=== PATIENT | male | born 1970 | race Two or more races ===

== ENCOUNTER 2023-05-31 18:19 | Inpatient (IN) | payer OTHER ==
[2023-05-31 18:55] VITALS: BMI 26.4
[2023-05-31] MEDS ORDERED: ACETAMINOPHEN 325 MG TABLET (FP) PO ONE (21:01)
[2023-06-01] MEDS ORDERED: COLLOIDAL OATMEAL 1 BAR EACH TP PRN (00:02)
[2023-06-01] MEDS ORDERED: MAG HYDROX/AL HYDROX/SIMETH 30 ML UNIT-DOSE CUP PO PRN (00:02)
[2023-06-01] MEDS ORDERED: BENZOCAINE/MENTHOL (CHLORASEPTIC ) LOZENGE MM PRN (00:02)
[2023-06-01] MEDS ORDERED: guaiFENesin 600 MG TABLET.ER (FP) PO PRN (00:02)
[2023-06-01] MEDS ORDERED: BENZONATATE 200 MG CAPSULE PO PRN (00:02)
[2023-06-01] MEDS ORDERED: MAGNESIUM HYDROX 2400MG/30ML ORAL SUSPENSION 30 ML CUP PO PRN (00:02)
[2023-06-01] MEDS ORDERED: ACETAMINOPHEN 325 MG TABLET (FP) PO PRN (00:02)
[2023-06-01] MEDS ORDERED: P-EPHED 60MG/TRIPROLIDI 2.5MG TABLET PO PRN (00:02)
[2023-06-01] MEDS ORDERED: POLYETHYLENE GLYCOL (HEALTHYLAX) 3350 17 GM PACKET PO PRN (00:02)
[2023-06-01] MEDS ORDERED: LOPERAMIDE HCL 2 MG CAPSULE PO PRN (00:02)
[2023-06-01] MEDS: KETOCONAZOLE 2% CREAM - 60GM TUBE TP SCH ×2 (01:34→10:08)
[2023-06-01] MEDS: PRENATAL VITAMINS W/ FOLIC ACID TABLET (FP) PO SCH (10:04)
[2023-06-01] MEDS: NIFEdipine E.R 60 MG TABLET PO SCH (10:06)
[2023-06-01] MEDS: HYDROCHLOROTHIAZIDE 25 MG TABLET (FP) PO SCH (10:06)
[2023-06-01] MEDS: BACITRACIN ZINC 15 GM TUBE TOPICAL OINTMENT TP SCH (10:07)
[2023-06-01 11:35] LABS: PH,URINE 6.5 (5.0-8.0); URINE APPEARANCE CLEAR; URINE BILIRUBIN NEGATIVE (NEGATIVE); URINE COLOR YELLOW; URINE GLUCOSE (UA) NEGATIVE (NEGATIVE); URINE KETONE NEGATIVE (NEGATIVE); URINE LEUK ESTERASE NEGATIVE (NEGATIVE); URINE NITRITE NEGATIVE (NEGATIVE); URINE PROTEIN NEGATIVE (NEGATIVE); URINE UROBILINOGEN 0.2 mg/dL (0.2-1.0)
[2023-06-01] MEDS: hydrOXYzine PAMOATE 50 MG CAPSULE (FP) PO PRN (12:21)
[2023-06-01] MEDS: THIAMINE HCL 100 MG TABLET (FP) PO SCH (21:04)
[2023-06-01] MEDS: cloNIDine HCL 0.1 MG TABLET PO SCH (21:04)
[2023-06-01] MEDS: MELATONIN 5 MG TABLETS PO SCH (21:04)
[2023-06-01] MEDS: traZODone HCL 50 MG TABLET (FP) PO SCH (21:05)
[2023-06-02] MEDS: IBUPROFEN 400 MG TABLET (FP) PO PRN (06:21)
[2023-06-02] MEDS: hydrOXYzine PAMOATE 50 MG CAPSULE (FP) PO PRN ×3 (06:23→21:14)
[2023-06-02] MEDS: NIFEdipine E.R 60 MG TABLET PO SCH (10:07)
[2023-06-02] MEDS: cloNIDine HCL 0.1 MG TABLET PO SCH ×2 (10:07→21:13)
[2023-06-02] MEDS: PRENATAL VITAMINS W/ FOLIC ACID TABLET (FP) PO SCH (10:07)
[2023-06-02] MEDS: HYDROCHLOROTHIAZIDE 25 MG TABLET (FP) PO SCH (10:07)
[2023-06-02] MEDS: BACITRACIN ZINC 15 GM TUBE TOPICAL OINTMENT TP SCH (10:09)
[2023-06-02] MEDS: KETOCONAZOLE 2% CREAM - 60GM TUBE TP SCH (10:27)
[2023-06-02] MEDS ORDERED: BACITRACIN 0.9 GM PACKET TP SCH (10:30)
[2023-06-02 10:58] LABS: HEMATOCRIT 36.4 % (35.4-49); HEMOGLOBIN 11.8 GM/dL (11.7-16.9); MCH 26.6 pg (25.7-33.7); MCHC 32.3 g/dl (32.0-35.9); MEAN CELL VOLUME 82.2 fl (80-96); PLATELET COUNT 307 10^3/uL (134-434); RBC 4.43 M/mm3 (4.00-5.60); RDW 15.9 % (11.9-15.9)
[2023-06-02 11:05] LABS: POTASSIUM 3.9 mmol/L (3.5-5.1)
[2023-06-02 11:25] LABS: CALCIUM 8.7 mg/dL (8.5-10.1)
[2023-06-02 11:26] LABS: ALBUMIN 3.1 g/dl (3.4-5.0); BLOOD UREA NITROGEN 16.7 mg/dL (7-18); MAGNESIUM 2.2 mg/dL (1.8-2.4)
[2023-06-02 11:29] LABS: CREATININE 0.8 mg/dL (0.55-1.3)
[2023-06-02 11:30] LABS: BILIRUBIN,TOTAL 0.2 mg/dL (0.2-1); TOT PROT 7.4 g/dl (6.4-8.2)
[2023-06-02] MEDS ORDERED: TUBERCULIN PPD 5 TU/0.1ML VIAL ID ONE (11:54)
[2023-06-02] MEDS ORDERED: TUBERCULIN PPD 5 TU/0.1ML SYRINGE (IN PATIENT USE ONLY) ID ONE (12:00)
[2023-06-02 13:02] LABS: INR 0.92 (0.83-1.09); PROTHROMBIN TIME (PATIENT) 10.7 SEC (9.7-13.0)
[2023-06-02] MEDS: THIAMINE HCL 100 MG TABLET (FP) PO SCH (21:12)
[2023-06-02] MEDS: MELATONIN 5 MG TABLETS PO SCH (21:12)
[2023-06-02] MEDS: traZODone HCL 50 MG TABLET (FP) PO SCH (21:13)
[2023-06-02] MEDS: IBUPROFEN 600 MG TABLET (FP) PO PRN (21:14)
[2023-06-03] MEDS: hydrOXYzine PAMOATE 50 MG CAPSULE (FP) PO PRN ×2 (06:43→16:55)
[2023-06-03] MEDS: IBUPROFEN 600 MG TABLET (FP) PO PRN ×2 (06:44→13:30)
[2023-06-03] MEDS: BACITRACIN ZINC 15 GM TUBE TOPICAL OINTMENT TP SCH (09:37)
[2023-06-03] MEDS: KETOCONAZOLE 2% CREAM - 60GM TUBE TP SCH (09:38)
[2023-06-03] MEDS: NIFEdipine E.R 60 MG TABLET PO SCH (09:38)
[2023-06-03] MEDS: cloNIDine HCL 0.1 MG TABLET PO SCH ×2 (09:38→21:25)
[2023-06-03] MEDS: HYDROCHLOROTHIAZIDE 25 MG TABLET (FP) PO SCH (09:38)
[2023-06-03] MEDS: PRENATAL VITAMINS W/ FOLIC ACID TABLET (FP) PO SCH (09:39)
[2023-06-03] MEDS: IBUPROFEN 400 MG TABLET (FP) PO PRN ×2 (16:54→21:25)
[2023-06-03] MEDS: MELATONIN 5 MG TABLETS PO SCH (21:25)
[2023-06-03] MEDS: traZODone HCL 50 MG TABLET (FP) PO SCH (21:25)
[2023-06-03] MEDS: THIAMINE HCL 100 MG TABLET (FP) PO SCH (21:25)
[2023-06-04] MEDS: BACITRACIN ZINC 15 GM TUBE TOPICAL OINTMENT TP SCH (10:28)
[2023-06-04] MEDS: NIFEdipine E.R 60 MG TABLET PO SCH (10:28)
[2023-06-04] MEDS: cloNIDine HCL 0.1 MG TABLET PO SCH ×2 (10:28→21:28)
[2023-06-04] MEDS: PRENATAL VITAMINS W/ FOLIC ACID TABLET (FP) PO SCH (10:29)
[2023-06-04] MEDS: IBUPROFEN 600 MG TABLET (FP) PO PRN ×2 (10:30→17:05)
[2023-06-04] MEDS: hydrOXYzine PAMOATE 50 MG CAPSULE (FP) PO PRN ×2 (10:30→17:05)
[2023-06-04] MEDS: KETOCONAZOLE 2% CREAM - 60GM TUBE TP SCH (10:31)
[2023-06-04] MEDS: HYDROCHLOROTHIAZIDE 25 MG TABLET (FP) PO SCH (10:31)
[2023-06-04] MEDS: THIAMINE HCL 100 MG TABLET (FP) PO SCH (21:28)
[2023-06-04] MEDS: traZODone HCL 50 MG TABLET (FP) PO SCH (21:28)
[2023-06-04] MEDS: MELATONIN 5 MG TABLETS PO SCH (21:29)
[2023-06-05] MEDS: NIFEdipine E.R 60 MG TABLET PO SCH (09:40)
[2023-06-05] MEDS: KETOCONAZOLE 2% CREAM - 60GM TUBE TP SCH (09:41)
[2023-06-05] MEDS: PRENATAL VITAMINS W/ FOLIC ACID TABLET (FP) PO SCH (09:41)
[2023-06-05] MEDS: IBUPROFEN 600 MG TABLET (FP) PO PRN ×3 (09:43→21:24)
[2023-06-05] MEDS: hydrOXYzine PAMOATE 50 MG CAPSULE (FP) PO PRN ×2 (09:44→16:43)
[2023-06-05] MEDS ORDERED: LISINOPRIL 20 MG TABLET PO SCH (10:00)
[2023-06-05] MEDS: cloNIDine HCL 0.1 MG TABLET PO SCH ×2 (10:14→21:23)
[2023-06-05] MEDS: BACITRACIN ZINC 15 GM TUBE TOPICAL OINTMENT TP SCH (10:14)
[2023-06-05] MEDS: LISINOPRIL 20 MG TABLET PO SCH (10:14)
[2023-06-05] MEDS: MELATONIN 5 MG TABLETS PO SCH (21:22)
[2023-06-05] MEDS: THIAMINE HCL 100 MG TABLET (FP) PO SCH (21:22)
[2023-06-05] MEDS: traZODone HCL 50 MG TABLET (FP) PO SCH (21:23)
[2023-06-06] MEDS: cloNIDine HCL 0.1 MG TABLET PO SCH ×2 (05:57→21:29)
[2023-06-06] MEDS: IBUPROFEN 400 MG TABLET (FP) PO PRN (05:59)
[2023-06-06] MEDS: PRENATAL VITAMINS W/ FOLIC ACID TABLET (FP) PO SCH (10:24)
[2023-06-06] MEDS: BACITRACIN ZINC 15 GM TUBE TOPICAL OINTMENT TP SCH (10:25)
[2023-06-06] MEDS: KETOCONAZOLE 2% CREAM - 60GM TUBE TP SCH (10:25)
[2023-06-06] MEDS: NIFEdipine E.R 60 MG TABLET PO SCH (10:25)
[2023-06-06] MEDS: LISINOPRIL 20 MG TABLET PO SCH (10:25)
[2023-06-06] MEDS: IBUPROFEN 600 MG TABLET (FP) PO PRN ×2 (15:50→21:30)
[2023-06-06] MEDS: hydrOXYzine PAMOATE 50 MG CAPSULE (FP) PO PRN ×2 (15:51→21:30)
[2023-06-06] MEDS: THIAMINE HCL 100 MG TABLET (FP) PO SCH (21:29)
[2023-06-06] MEDS: traZODone HCL 50 MG TABLET (FP) PO SCH (22:06)
[2023-06-06] MEDS: MELATONIN 5 MG TABLETS PO SCH (22:06)
[2023-06-07] MEDS: cloNIDine HCL 0.1 MG TABLET PO SCH ×2 (06:46→21:04)
[2023-06-07] MEDS: BACITRACIN ZINC 15 GM TUBE TOPICAL OINTMENT TP SCH (09:02)
[2023-06-07] MEDS: IBUPROFEN 600 MG TABLET (FP) PO PRN ×2 (09:03→21:04)
[2023-06-07] MEDS: LISINOPRIL 20 MG TABLET PO SCH (09:03)
[2023-06-07] MEDS: KETOCONAZOLE 2% CREAM - 60GM TUBE TP SCH (09:04)
[2023-06-07] MEDS: PRENATAL VITAMINS W/ FOLIC ACID TABLET (FP) PO SCH (09:04)
[2023-06-07] MEDS: NIFEdipine E.R 60 MG TABLET PO SCH (09:04)
[2023-06-07] MEDS: hydrOXYzine PAMOATE 50 MG CAPSULE (FP) PO PRN (21:04)
[2023-06-07] MEDS: THIAMINE HCL 100 MG TABLET (FP) PO SCH (21:04)
[2023-06-07] MEDS: MELATONIN 5 MG TABLETS PO SCH (21:05)
[2023-06-07] MEDS: traZODone HCL 50 MG TABLET (FP) PO SCH (21:05)
[2023-06-08] MEDS: cloNIDine HCL 0.1 MG TABLET PO SCH ×2 (06:20→21:01)
[2023-06-08] MEDS: LISINOPRIL 20 MG TABLET PO SCH (09:34)
[2023-06-08] MEDS: BACITRACIN ZINC 15 GM TUBE TOPICAL OINTMENT TP SCH (09:34)
[2023-06-08] MEDS: PRENATAL VITAMINS W/ FOLIC ACID TABLET (FP) PO SCH (09:34)
[2023-06-08] MEDS: NIFEdipine E.R 60 MG TABLET PO SCH (09:34)
[2023-06-08] MEDS: IBUPROFEN 600 MG TABLET (FP) PO PRN ×3 (09:35→21:02)
[2023-06-08] MEDS: KETOCONAZOLE 2% CREAM - 60GM TUBE TP SCH (09:35)
[2023-06-08] MEDS: hydrOXYzine PAMOATE 50 MG CAPSULE (FP) PO PRN ×2 (16:08→22:08)
[2023-06-08] MEDS: THIAMINE HCL 100 MG TABLET (FP) PO SCH (21:01)
[2023-06-08] MEDS: MELATONIN 5 MG TABLETS PO SCH (21:01)
[2023-06-08] MEDS: traZODone HCL 50 MG TABLET (FP) PO SCH (21:01)
[2023-06-09] MEDS: cloNIDine HCL 0.1 MG TABLET PO SCH ×2 (05:52→21:07)
[2023-06-09] MEDS: IBUPROFEN 400 MG TABLET (FP) PO PRN (05:52)
[2023-06-09] MEDS: hydrOXYzine PAMOATE 50 MG CAPSULE (FP) PO PRN ×2 (05:55→16:29)
[2023-06-09] MEDS: BACITRACIN ZINC 15 GM TUBE TOPICAL OINTMENT TP SCH (09:27)
[2023-06-09] MEDS: KETOCONAZOLE 2% CREAM - 60GM TUBE TP SCH (09:28)
[2023-06-09] MEDS: NIFEdipine E.R 60 MG TABLET PO SCH (09:28)
[2023-06-09] MEDS: LISINOPRIL 20 MG TABLET PO SCH (09:28)
[2023-06-09] MEDS: PRENATAL VITAMINS W/ FOLIC ACID TABLET (FP) PO SCH (09:28)
[2023-06-09] MEDS: IBUPROFEN 600 MG TABLET (FP) PO PRN (16:29)
[2023-06-09] MEDS: traZODone HCL 50 MG TABLET (FP) PO SCH (21:08)
[2023-06-09] MEDS: THIAMINE HCL 100 MG TABLET (FP) PO SCH (21:08)
[2023-06-09] MEDS: MELATONIN 5 MG TABLETS PO SCH (21:08)
[2023-06-10] MEDS: cloNIDine HCL 0.1 MG TABLET PO SCH ×2 (06:29→21:05)
[2023-06-10] MEDS: hydrOXYzine PAMOATE 50 MG CAPSULE (FP) PO PRN ×3 (06:31→21:05)
[2023-06-10] MEDS: IBUPROFEN 600 MG TABLET (FP) PO PRN ×3 (06:31→21:06)
[2023-06-10] MEDS: BACITRACIN ZINC 15 GM TUBE TOPICAL OINTMENT TP SCH (09:28)
[2023-06-10] MEDS: LISINOPRIL 20 MG TABLET PO SCH (09:28)
[2023-06-10] MEDS: PRENATAL VITAMINS W/ FOLIC ACID TABLET (FP) PO SCH (09:28)
[2023-06-10] MEDS: KETOCONAZOLE 2% CREAM - 60GM TUBE TP SCH (09:28)
[2023-06-10] MEDS: NIFEdipine E.R 60 MG TABLET PO SCH (09:28)
[2023-06-10] MEDS: THIAMINE HCL 100 MG TABLET (FP) PO SCH (21:05)
[2023-06-10] MEDS: traZODone HCL 50 MG TABLET (FP) PO SCH (21:06)
[2023-06-10] MEDS: MELATONIN 5 MG TABLETS PO SCH (21:06)
[2023-06-11] MEDS: cloNIDine HCL 0.1 MG TABLET PO SCH ×2 (06:04→21:02)
[2023-06-11] MEDS: IBUPROFEN 400 MG TABLET (FP) PO PRN (06:05)
[2023-06-11] MEDS: hydrOXYzine PAMOATE 50 MG CAPSULE (FP) PO PRN ×2 (06:05→21:02)
[2023-06-11] MEDS: NIFEdipine E.R 60 MG TABLET PO SCH (09:43)
[2023-06-11] MEDS: PRENATAL VITAMINS W/ FOLIC ACID TABLET (FP) PO SCH (09:43)
[2023-06-11] MEDS: LISINOPRIL 20 MG TABLET PO SCH (09:43)
[2023-06-11] MEDS: KETOCONAZOLE 2% CREAM - 60GM TUBE TP SCH (09:44)
[2023-06-11] MEDS: IBUPROFEN 600 MG TABLET (FP) PO PRN ×2 (09:45→21:02)
[2023-06-11] MEDS: BACITRACIN ZINC 15 GM TUBE TOPICAL OINTMENT TP SCH (09:46)
[2023-06-11] MEDS: THIAMINE HCL 100 MG TABLET (FP) PO SCH (21:01)
[2023-06-11] MEDS: MELATONIN 5 MG TABLETS PO SCH (21:03)
[2023-06-11] MEDS: traZODone HCL 50 MG TABLET (FP) PO SCH (21:19)
[2023-06-12] MEDS: cloNIDine HCL 0.1 MG TABLET PO SCH ×2 (06:18→21:11)
[2023-06-12] MEDS: hydrOXYzine PAMOATE 50 MG CAPSULE (FP) PO PRN ×2 (06:18→16:28)
[2023-06-12] MEDS: LISINOPRIL 20 MG TABLET PO SCH (09:53)
[2023-06-12] MEDS: PRENATAL VITAMINS W/ FOLIC ACID TABLET (FP) PO SCH (09:53)
[2023-06-12] MEDS: NIFEdipine E.R 60 MG TABLET PO SCH (09:53)
[2023-06-12] MEDS: KETOCONAZOLE 2% CREAM - 60GM TUBE TP SCH (09:54)
[2023-06-12] MEDS: BACITRACIN ZINC 15 GM TUBE TOPICAL OINTMENT TP SCH (09:54)
[2023-06-12] MEDS: IBUPROFEN 600 MG TABLET (FP) PO PRN ×2 (15:17→21:12)
[2023-06-12] MEDS: THIAMINE HCL 100 MG TABLET (FP) PO SCH (21:12)
[2023-06-12] MEDS: MELATONIN 5 MG TABLETS PO SCH (21:13)
[2023-06-12] MEDS: traZODone HCL 50 MG TABLET (FP) PO SCH (21:13)
[2023-06-13] MEDS: IBUPROFEN 600 MG TABLET (FP) PO PRN ×3 (05:53→21:09)
[2023-06-13] MEDS: hydrOXYzine PAMOATE 50 MG CAPSULE (FP) PO PRN ×3 (05:53→21:09)
[2023-06-13] MEDS: cloNIDine HCL 0.1 MG TABLET PO SCH ×2 (05:53→21:09)
[2023-06-13] MEDS: PRENATAL VITAMINS W/ FOLIC ACID TABLET (FP) PO SCH (09:12)
[2023-06-13] MEDS: BACITRACIN ZINC 15 GM TUBE TOPICAL OINTMENT TP SCH (09:12)
[2023-06-13] MEDS: LISINOPRIL 20 MG TABLET PO SCH (09:12)
[2023-06-13] MEDS: NIFEdipine E.R 60 MG TABLET PO SCH (09:13)
[2023-06-13] MEDS: KETOCONAZOLE 2% CREAM - 60GM TUBE TP SCH (09:13)
[2023-06-13] MEDS: THIAMINE HCL 100 MG TABLET (FP) PO SCH (21:09)
[2023-06-13] MEDS: traZODone HCL 50 MG TABLET (FP) PO SCH (21:10)
[2023-06-13] MEDS: MELATONIN 5 MG TABLETS PO SCH (21:10)
[2023-06-14] MEDS: cloNIDine HCL 0.1 MG TABLET PO SCH ×2 (06:10→21:00)
[2023-06-14] MEDS: IBUPROFEN 600 MG TABLET (FP) PO PRN ×3 (06:11→19:27)
[2023-06-14] MEDS: hydrOXYzine PAMOATE 50 MG CAPSULE (FP) PO PRN ×3 (06:11→21:00)
[2023-06-14] MEDS: BACITRACIN ZINC 15 GM TUBE TOPICAL OINTMENT TP SCH (09:57)
[2023-06-14] MEDS: LISINOPRIL 20 MG TABLET PO SCH (09:57)
[2023-06-14] MEDS: KETOCONAZOLE 2% CREAM - 60GM TUBE TP SCH (09:57)
[2023-06-14] MEDS: PRENATAL VITAMINS W/ FOLIC ACID TABLET (FP) PO SCH (09:57)
[2023-06-14] MEDS: NIFEdipine E.R 60 MG TABLET PO SCH (09:57)
[2023-06-14] MEDS: THIAMINE HCL 100 MG TABLET (FP) PO SCH (21:00)
[2023-06-14] MEDS: traZODone HCL 50 MG TABLET (FP) PO SCH (21:01)
[2023-06-14] MEDS: MELATONIN 5 MG TABLETS PO SCH (21:01)
[2023-06-15] MEDS: cloNIDine HCL 0.1 MG TABLET PO SCH ×3 (06:08→21:09)
[2023-06-15] MEDS: IBUPROFEN 600 MG TABLET (FP) PO PRN ×3 (06:15→21:10)
[2023-06-15] MEDS: PRENATAL VITAMINS W/ FOLIC ACID TABLET (FP) PO SCH (09:59)
[2023-06-15] MEDS: LISINOPRIL 20 MG TABLET PO SCH (09:59)
[2023-06-15] MEDS: NIFEdipine E.R 60 MG TABLET PO SCH (10:00)
[2023-06-15] MEDS: KETOCONAZOLE 2% CREAM - 60GM TUBE TP SCH (10:00)
[2023-06-15] MEDS: BACITRACIN ZINC 15 GM TUBE TOPICAL OINTMENT TP SCH (10:00)
[2023-06-15] MEDS: hydrOXYzine PAMOATE 50 MG CAPSULE (FP) PO PRN ×2 (15:09→21:09)
[2023-06-15] MEDS: MELATONIN 5 MG TABLETS PO SCH (21:09)
[2023-06-15] MEDS: THIAMINE HCL 100 MG TABLET (FP) PO SCH (21:09)
[2023-06-15] MEDS: traZODone HCL 50 MG TABLET (FP) PO SCH (21:09)
[2023-06-16] MEDS: cloNIDine HCL 0.1 MG TABLET PO SCH ×3 (06:10→21:03)
[2023-06-16] MEDS: IBUPROFEN 600 MG TABLET (FP) PO PRN ×2 (06:10→21:03)
[2023-06-16] MEDS: NIFEdipine E.R 60 MG TABLET PO SCH (10:22)
[2023-06-16] MEDS: PRENATAL VITAMINS W/ FOLIC ACID TABLET (FP) PO SCH (10:22)
[2023-06-16] MEDS: BACITRACIN ZINC 15 GM TUBE TOPICAL OINTMENT TP SCH (10:22)
[2023-06-16] MEDS: LISINOPRIL 20 MG TABLET PO SCH (10:22)
[2023-06-16] MEDS: KETOCONAZOLE 2% CREAM - 60GM TUBE TP SCH (10:22)
[2023-06-16] MEDS: hydrOXYzine PAMOATE 50 MG CAPSULE (FP) PO PRN ×2 (11:41→21:03)
[2023-06-16] MEDS: THIAMINE HCL 100 MG TABLET (FP) PO SCH (21:03)
[2023-06-16] MEDS: MELATONIN 5 MG TABLETS PO SCH (21:04)
[2023-06-16] MEDS: traZODone HCL 50 MG TABLET (FP) PO SCH (21:04)
[2023-06-17] MEDS: cloNIDine HCL 0.1 MG TABLET PO SCH ×3 (06:11→21:04)
[2023-06-17] MEDS: IBUPROFEN 600 MG TABLET (FP) PO PRN (06:12)
[2023-06-17] MEDS: BACITRACIN ZINC 15 GM TUBE TOPICAL OINTMENT TP SCH (10:03)
[2023-06-17] MEDS: LISINOPRIL 20 MG TABLET PO SCH (10:04)
[2023-06-17] MEDS: NIFEdipine E.R 60 MG TABLET PO SCH (10:04)
[2023-06-17] MEDS: PRENATAL VITAMINS W/ FOLIC ACID TABLET (FP) PO SCH (10:04)
[2023-06-17] MEDS: KETOCONAZOLE 2% CREAM - 60GM TUBE TP SCH (10:04)
[2023-06-17] MEDS: THIAMINE HCL 100 MG TABLET (FP) PO SCH (21:03)
[2023-06-17] MEDS: MELATONIN 5 MG TABLETS PO SCH (21:04)
[2023-06-17] MEDS: hydrOXYzine PAMOATE 50 MG CAPSULE (FP) PO PRN (21:04)
[2023-06-17] MEDS: traZODone HCL 50 MG TABLET (FP) PO SCH (21:05)
[2023-06-18] MEDS: IBUPROFEN 600 MG TABLET (FP) PO PRN ×2 (06:24→16:21)
[2023-06-18] MEDS: hydrOXYzine PAMOATE 50 MG CAPSULE (FP) PO PRN ×3 (06:26→21:19)
[2023-06-18] MEDS: cloNIDine HCL 0.1 MG TABLET PO SCH ×3 (06:40→21:18)
[2023-06-18] MEDS: LISINOPRIL 20 MG TABLET PO SCH (10:11)
[2023-06-18] MEDS: NIFEdipine E.R 60 MG TABLET PO SCH (10:11)
[2023-06-18] MEDS: PRENATAL VITAMINS W/ FOLIC ACID TABLET (FP) PO SCH (10:11)
[2023-06-18] MEDS: KETOCONAZOLE 2% CREAM - 60GM TUBE TP SCH (10:12)
[2023-06-18] MEDS: BACITRACIN ZINC 15 GM TUBE TOPICAL OINTMENT TP SCH (10:13)
[2023-06-18] MEDS: traZODone HCL 50 MG TABLET (FP) PO SCH (21:18)
[2023-06-18] MEDS: THIAMINE HCL 100 MG TABLET (FP) PO SCH (21:18)
[2023-06-18] MEDS: MELATONIN 5 MG TABLETS PO SCH (21:19)
[2023-06-19] MEDS: cloNIDine HCL 0.1 MG TABLET PO SCH ×3 (06:21→21:35)
[2023-06-19] MEDS: IBUPROFEN 600 MG TABLET (FP) PO PRN ×3 (06:22→21:35)
[2023-06-19] MEDS: hydrOXYzine PAMOATE 50 MG CAPSULE (FP) PO PRN ×2 (06:22→21:35)
[2023-06-19] MEDS: BACITRACIN 0.9 GM PACKET TP SCH (10:17)
[2023-06-19] MEDS: PRENATAL VITAMINS W/ FOLIC ACID TABLET (FP) PO SCH (10:18)
[2023-06-19] MEDS: LISINOPRIL 20 MG TABLET PO SCH ×2 (10:18→18:09)
[2023-06-19] MEDS: KETOCONAZOLE 2% CREAM - 60GM TUBE TP SCH (10:18)
[2023-06-19] MEDS: NIFEdipine E.R 60 MG TABLET PO SCH (10:18)
[2023-06-19 16:04] LABS: POTASSIUM 3.9 mmol/L (3.5-5.1)
[2023-06-19 16:07] LABS: ALBUMIN 3.8 g/dl (3.4-5.0); BLOOD UREA NITROGEN 31.6 mg/dL (7-18)
[2023-06-19 16:10] LABS: CREATININE 1.1 mg/dL (0.55-1.3)
[2023-06-19 16:11] LABS: BILIRUBIN,TOTAL 0.4 mg/dL (0.2-1)
[2023-06-19] MEDS: THIAMINE HCL 100 MG TABLET (FP) PO SCH (21:35)
[2023-06-19] MEDS: traZODone HCL 50 MG TABLET (FP) PO SCH (21:36)
[2023-06-19] MEDS: MELATONIN 5 MG TABLETS PO SCH (21:36)
[2023-06-19] MEDS ORDERED: LISINOPRIL 20 MG TABLET PO SCH (22:00)
[2023-06-19] MEDS ORDERED: cloNIDine HCL 0.1 MG TABLET PO ONE (23:28)
[2023-06-20] MEDS: cloNIDine HCL 0.1 MG TABLET PO SCH ×3 (06:24→21:12)
[2023-06-20] MEDS: LISINOPRIL 20 MG TABLET PO SCH ×2 (06:25→17:24)
[2023-06-20] MEDS: IBUPROFEN 600 MG TABLET (FP) PO PRN ×2 (06:25→21:13)
[2023-06-20] MEDS: BACITRACIN 0.9 GM PACKET TP SCH (09:14)
[2023-06-20] MEDS: PRENATAL VITAMINS W/ FOLIC ACID TABLET (FP) PO SCH (09:14)
[2023-06-20] MEDS: NIFEdipine E.R 60 MG TABLET PO SCH (09:14)
[2023-06-20] MEDS: hydrOXYzine PAMOATE 50 MG CAPSULE (FP) PO PRN ×2 (09:16→21:13)
[2023-06-20] MEDS ORDERED: LISINOPRIL 20 MG TABLET PO SCH (10:00)
[2023-06-20] MEDS: KETOCONAZOLE 2% CREAM - 60GM TUBE TP SCH (10:09)
[2023-06-20] MEDS: THIAMINE HCL 100 MG TABLET (FP) PO SCH (21:13)
[2023-06-20] MEDS: traZODone HCL 50 MG TABLET (FP) PO SCH (21:14)
[2023-06-20] MEDS: MELATONIN 5 MG TABLETS PO SCH (21:14)
[2023-06-21] MEDS: hydrOXYzine PAMOATE 50 MG CAPSULE (FP) PO PRN ×3 (06:11→21:00)
[2023-06-21] MEDS: LISINOPRIL 20 MG TABLET PO SCH ×2 (06:11→17:20)
[2023-06-21] MEDS: cloNIDine HCL 0.1 MG TABLET PO SCH ×3 (06:11→21:00)
[2023-06-21] MEDS: IBUPROFEN 600 MG TABLET (FP) PO PRN ×2 (06:11→21:01)
[2023-06-21] MEDS: KETOCONAZOLE 2% CREAM - 60GM TUBE TP SCH (10:15)
[2023-06-21] MEDS: PRENATAL VITAMINS W/ FOLIC ACID TABLET (FP) PO SCH (10:15)
[2023-06-21] MEDS: BACITRACIN 0.9 GM PACKET TP SCH (10:15)
[2023-06-21] MEDS: NIFEdipine E.R 60 MG TABLET PO SCH (10:15)
[2023-06-21] MEDS: IBUPROFEN 400 MG TABLET (FP) PO PRN (13:53)
[2023-06-21] MEDS: THIAMINE HCL 100 MG TABLET (FP) PO SCH (21:00)
[2023-06-21] MEDS: traZODone HCL 50 MG TABLET (FP) PO SCH (21:01)
[2023-06-21] MEDS: MELATONIN 5 MG TABLETS PO SCH (21:02)
[2023-06-22] MEDS: LISINOPRIL 20 MG TABLET PO SCH ×2 (06:23→17:26)
[2023-06-22] MEDS: cloNIDine HCL 0.1 MG TABLET PO SCH ×3 (06:23→21:00)
[2023-06-22] MEDS: IBUPROFEN 600 MG TABLET (FP) PO PRN ×2 (06:23→21:00)
[2023-06-22] MEDS: NIFEdipine E.R 60 MG TABLET PO SCH (09:52)
[2023-06-22] MEDS: BACITRACIN 0.9 GM PACKET TP SCH (09:52)
[2023-06-22] MEDS: PRENATAL VITAMINS W/ FOLIC ACID TABLET (FP) PO SCH (09:52)
[2023-06-22] MEDS: KETOCONAZOLE 2% CREAM - 60GM TUBE TP SCH (09:53)
[2023-06-22] MEDS: hydrOXYzine PAMOATE 50 MG CAPSULE (FP) PO PRN ×2 (09:54→21:00)
[2023-06-22] MEDS ORDERED: NIFEdipine E.R 60 MG TABLET PO SCH (10:42)
[2023-06-22] MEDS: traZODone HCL 50 MG TABLET (FP) PO SCH (21:00)
[2023-06-22] MEDS: THIAMINE HCL 100 MG TABLET (FP) PO SCH (21:00)
[2023-06-22] MEDS: MELATONIN 5 MG TABLETS PO SCH (21:01)
[2023-06-23] MEDS: IBUPROFEN 400 MG TABLET (FP) PO PRN (06:06)
[2023-06-23] MEDS: hydrOXYzine PAMOATE 50 MG CAPSULE (FP) PO PRN ×2 (06:06→21:01)
[2023-06-23] MEDS: cloNIDine HCL 0.1 MG TABLET PO SCH ×3 (06:07→21:01)
[2023-06-23] MEDS: LISINOPRIL 20 MG TABLET PO SCH ×2 (06:07→17:01)
[2023-06-23] MEDS: PRENATAL VITAMINS W/ FOLIC ACID TABLET (FP) PO SCH (09:44)
[2023-06-23] MEDS: BACITRACIN 0.9 GM PACKET TP SCH (09:44)
[2023-06-23] MEDS: KETOCONAZOLE 2% CREAM - 60GM TUBE TP SCH (09:44)
[2023-06-23] MEDS: MAGNESIUM OXIDE 400 MG TABLET (FP) PO SCH ×2 (15:35→21:02)
[2023-06-23] MEDS: NIFEdipine E.R. 90 MG TABLET PO SCH (17:01)
[2023-06-23] MEDS: THIAMINE HCL 100 MG TABLET (FP) PO SCH (21:01)
[2023-06-23] MEDS: IBUPROFEN 600 MG TABLET (FP) PO PRN (21:02)
[2023-06-23] MEDS: MELATONIN 5 MG TABLETS PO SCH (21:03)
[2023-06-23] MEDS: traZODone HCL 50 MG TABLET (FP) PO SCH (21:03)
[2023-06-24] MEDS: LISINOPRIL 20 MG TABLET PO SCH ×2 (05:56→18:31)
[2023-06-24] MEDS: hydrOXYzine PAMOATE 50 MG CAPSULE (FP) PO PRN (05:56)
[2023-06-24] MEDS: cloNIDine HCL 0.1 MG TABLET PO SCH ×3 (05:56→21:38)
[2023-06-24] MEDS: IBUPROFEN 600 MG TABLET (FP) PO PRN (05:56)
[2023-06-24] MEDS: KETOCONAZOLE 2% CREAM - 60GM TUBE TP SCH (10:32)
[2023-06-24] MEDS: PRENATAL VITAMINS W/ FOLIC ACID TABLET (FP) PO SCH (10:32)
[2023-06-24] MEDS: BACITRACIN 0.9 GM PACKET TP SCH (10:32)
[2023-06-24] MEDS: MAGNESIUM OXIDE 400 MG TABLET (FP) PO SCH ×2 (10:32→21:38)
[2023-06-24] MEDS: NIFEdipine E.R. 90 MG TABLET PO SCH (18:31)
[2023-06-24] MEDS: THIAMINE HCL 100 MG TABLET (FP) PO SCH (21:38)
[2023-06-24] MEDS: traZODone HCL 50 MG TABLET (FP) PO SCH (21:39)
[2023-06-24] MEDS: MELATONIN 5 MG TABLETS PO SCH (21:40)
[2023-06-25] MEDS: IBUPROFEN 600 MG TABLET (FP) PO PRN ×2 (06:16→21:32)
[2023-06-25] MEDS: cloNIDine HCL 0.1 MG TABLET PO SCH ×3 (06:16→21:30)
[2023-06-25] MEDS: hydrOXYzine PAMOATE 50 MG CAPSULE (FP) PO PRN ×3 (06:16→21:31)
[2023-06-25] MEDS: LISINOPRIL 20 MG TABLET PO SCH ×2 (06:16→17:08)
[2023-06-25] MEDS: PRENATAL VITAMINS W/ FOLIC ACID TABLET (FP) PO SCH (10:16)
[2023-06-25] MEDS: MAGNESIUM OXIDE 400 MG TABLET (FP) PO SCH ×2 (10:17→21:33)
[2023-06-25] MEDS: BACITRACIN 0.9 GM PACKET TP SCH (10:18)
[2023-06-25] MEDS: KETOCONAZOLE 2% CREAM - 60GM TUBE TP SCH (10:18)
[2023-06-25] MEDS: IBUPROFEN 400 MG TABLET (FP) PO PRN (13:38)
[2023-06-25] MEDS: NIFEdipine E.R. 90 MG TABLET PO SCH (17:08)
[2023-06-25] MEDS: THIAMINE HCL 100 MG TABLET (FP) PO SCH (21:31)
[2023-06-25] MEDS: traZODone HCL 50 MG TABLET (FP) PO SCH (21:31)
[2023-06-25] MEDS: MELATONIN 5 MG TABLETS PO SCH (21:32)
[2023-06-26] MEDS: cloNIDine HCL 0.1 MG TABLET PO SCH ×3 (05:52→21:12)
[2023-06-26] MEDS: LISINOPRIL 20 MG TABLET PO SCH ×2 (05:52→17:41)
[2023-06-26] MEDS: IBUPROFEN 600 MG TABLET (FP) PO PRN ×2 (05:52→21:14)
[2023-06-26] MEDS: PRENATAL VITAMINS W/ FOLIC ACID TABLET (FP) PO SCH (10:38)
[2023-06-26] MEDS: BACITRACIN 0.9 GM PACKET TP SCH (10:38)
[2023-06-26] MEDS: MAGNESIUM OXIDE 400 MG TABLET (FP) PO SCH ×2 (10:39→21:13)
[2023-06-26] MEDS: KETOCONAZOLE 2% CREAM - 60GM TUBE TP SCH (10:39)
[2023-06-26] MEDS: NIFEdipine E.R. 90 MG TABLET PO SCH (17:41)
[2023-06-26] MEDS: THIAMINE HCL 100 MG TABLET (FP) PO SCH (21:13)
[2023-06-26] MEDS: traZODone HCL 50 MG TABLET (FP) PO SCH (21:13)
[2023-06-26] MEDS: MELATONIN 5 MG TABLETS PO SCH (21:13)
[2023-06-26] MEDS: hydrOXYzine PAMOATE 50 MG CAPSULE (FP) PO PRN (21:14)
[2023-06-27] MEDS: LISINOPRIL 20 MG TABLET PO SCH ×2 (06:20→18:07)
[2023-06-27] MEDS: IBUPROFEN 600 MG TABLET (FP) PO PRN ×2 (06:20→13:20)
[2023-06-27] MEDS: hydrOXYzine PAMOATE 50 MG CAPSULE (FP) PO PRN ×3 (06:20→21:11)
[2023-06-27] MEDS: cloNIDine HCL 0.1 MG TABLET PO SCH ×3 (06:20→21:11)
[2023-06-27 09:01] VITALS: RESP 17
[2023-06-27] MEDS: BACITRACIN 0.9 GM PACKET TP SCH (09:44)
[2023-06-27] MEDS: MAGNESIUM OXIDE 400 MG TABLET (FP) PO SCH ×2 (09:44→21:12)
[2023-06-27] MEDS: PRENATAL VITAMINS W/ FOLIC ACID TABLET (FP) PO SCH (09:44)
[2023-06-27] MEDS: KETOCONAZOLE 2% CREAM - 60GM TUBE TP SCH (09:45)
[2023-06-27] MEDS: NIFEdipine E.R. 90 MG TABLET PO SCH (18:07)
[2023-06-27] MEDS: IBUPROFEN 400 MG TABLET (FP) PO PRN (21:10)
[2023-06-27] MEDS: MELATONIN 5 MG TABLETS PO SCH (21:13)
[2023-06-27] MEDS: THIAMINE HCL 100 MG TABLET (FP) PO SCH (21:13)
[2023-06-27] MEDS: traZODone HCL 50 MG TABLET (FP) PO SCH (21:13)
[2023-06-28] MEDS: cloNIDine HCL 0.1 MG TABLET PO SCH (05:55)
[2023-06-28] MEDS: LISINOPRIL 20 MG TABLET PO SCH (05:56)
[2023-06-28 06:32] VITALS: BP 158/97; TEMP 97.3
[2023-06-28 09:08] VITALS: PULSE 91
== END 2023-06-28 08:59 | disposition home or self-care (01) | DRG 772 ==
LOC: YASAS 18:19 → Y3W 23:58
PROVIDERS: ADMIT Allergy & Immunology; ATTEND Psychiatry & Neurology Pain Medicine
PROC: HZ42ZZZ Group Counseling for Substance Abuse Treatment, Cognitive-Behavioral (ICD-10-PCS; principal; 2023-05-31)
DX: F10.20 Alcohol dependence, uncomplicated (principal); F14.20 Cocaine dependence, uncomplicated; F17.210 Nicotine dependence, cigarettes, uncomplicated; F10.280 Alcohol dependence with alcohol-induced anxiety disorder; F10.282 Alcohol dependence with alcohol-induced sleep disorder; E72.20 Disorder of urea cycle metabolism, unspecified; I10 Essential (primary) hypertension; T63.301D Toxic effect of unspecified spider venom, accidental (unintentional), subsequent encounter
CPT/HCPCS: 36415; 71046-TC-FY; 80053; 81003; 82140; 82652; 83036; 83735; 85027; 85610; 86780; 86803; 87070; 87186; 87205; 87635; 99283-25

== ENCOUNTER 2023-06-07 11:35 | Emergency (ER) | payer OTHER ==
[2023-06-07 11:56] VITALS: BMI 29.7
[2023-06-07] MEDS ORDERED: LIDOCAINE HCL 1%, 10 MG/ML (20ML VIAL) ONE (13:33)
[2023-06-07 14:23] VITALS: BP 154/98; PULSE 74; RESP 16; TEMP 98
== END 2023-06-07 14:12 | disposition home or self-care (01) ==
LOC: JER 11:35
DX: Z48.02 Encounter for removal of sutures (principal)
CPT/HCPCS: 99283-25